=== PATIENT | female | born 1965 | race Caucasian/White ===

== ENCOUNTER 2023-02-19 11:13 | Emergency (ER) | payer OTHER ==
[~2023-02-19] VITALS: Ht 157.5 cm; Wt 69.1 kg
[2023-02-19] MEDS ORDERED: ceFAZolin SOD 2 GM in IV 1 EA IV ONE (11:55)
[2023-02-19] MEDS ORDERED: LIDOCAINE 1% MDV 20ML VIAL SC ONE (13:25)
[2023-02-19 14:50] VITALS: BP 132/75; TEMP 98.4; O2SAT 97
[2023-02-23] MEDS ORDERED: CEPH25SS PO (15:08)
[2023-02-23] MEDS ORDERED: OXYC1TAB23 PO (15:08)
[2023-02-23] MEDS ORDERED: CEPH500C PO (15:08)
== END 2023-02-19 14:52 | disposition home or self-care (01) ==
LOC: M ED 11:13
DX: S68.624A Partial traumatic transphalangeal amputation of right ring finger, initial encounter (principal); Y93.19 Activity, other involving water and watercraft
CPT/HCPCS: 20822; 73140; 87635; 96365; 96376; 99284; J0690

== ENCOUNTER 2023-02-26 08:47 | Day surgery (SDC) | payer OTHER ==
[~2023-02-26] VITALS: Ht 160 cm; Wt 69.0 kg
[~2023-02-26 08:47] MED LIST: BACITRACIN OINTMENT 30GM TUBE As Ordered ONE; CEPH25SS PO; CEPH500C PO; LIDOCAINE W/EPINEPHRINE 1% 20ML VIAL XX ONE; OXYC1TAB23 PO; SODIUM BICARBONATE 8.4% INJ 50MEQ 50ML VIAL XX ONE
[2023-02-26] MEDS ORDERED: LIDOCAINE 1% SDV 30ML VIAL XX ONE (09:00)
[2023-02-26] MEDS ORDERED: SODIUM BICARBONATE 8.4% INJ 50MEQ 50ML VIAL XX ONE (09:00)
[2023-02-26] MEDS ORDERED: [UNRECOGNIZED DRUG - REMARK] PA (09:13)
[2023-02-26] MEDS ORDERED: [UNRECOGNIZED DRUG - OTHER] PO (09:13)
[2023-02-26 10:50] VITALS: TEMP 97.6; O2SAT 99
[2023-02-26 11:10] VITALS: BP 158/86
== END 2023-02-26 11:24 | disposition home or self-care (01) ==
LOC: M SDC 08:47
PROVIDERS: ATTEND Orthopaedic Surgery Hand Surgery
DX: S68.114A Complete traumatic metacarpophalangeal amputation of right ring finger, initial encounter (principal); X58.XXXA Exposure to other specified factors, initial encounter; Y92.89 Other specified places as the place of occurrence of the external cause; Y93.9 Activity, unspecified; Y99.9 Unspecified external cause status; Z88.5 Allergy status to narcotic agent